=== PATIENT | male | born 1985 | race Caucasian/White ===

== ENCOUNTER 2017-10-13 11:51 | Emergency (ER) | payer OTHER ==
[2017-10-13] MEDS ORDERED: Sodium Chloride 0.9% 10 ML Syringe FLUSH PRN (11:59)
[2017-10-13] MEDS ORDERED: Diphtheria,Pertussis(Acell),Tetanus Vaccine 0.5 ML SDV IM ONE (12:00)
[2017-10-13] MEDS ORDERED: ceFAZolin 2 GM in Premix Bag 1 BAG IV ONE (12:00)
--- NOTE | 2017-10-13 12:50 | CT ---
CT cervical spine Technique: Multiple axial sections were obtained from above C1 inferiorly to the bottom of C7. Reconstructed sagittal and coronal images were reviewed. Findings: Fluid is seen within the inferior left mastoid sinus. Mild amount of fluid is seen within the right mastoid sinus. Skull base appears intact. Vertebral body heights and disc spaces are maintained. Vertebral bodies and posterior arches are intact with no fracture being seen. No bony central or bony neural foraminal stenosis is seen. No abnormal subluxation is seen. Impression: 1. Fluid within both mastoid sinuses. This most likely is incidental but please exclude any symptoms of mastoiditis. 2. Nothing acute is appreciated on CT study of the cervical spine. Diagnostic code #2
[2017-10-13] MEDS ORDERED: Lidocaine 1% 10 ML MDV INJECT ONE ×2 (12:52→13:21)
--- NOTE | 2017-10-13 12:52 | CT ---
Head CT Technique: Multiple axial sections through the brain were obtained. Intravenous contrast was not utilized. Comparison: No previous intracranial imaging. Findings: Ventricles along with basal cisterns and sulci over the convexities are within normal limits. No abnormal parenchymal densities are seen. No evidence of intracranial hemorrhage. No midline shift or mass effect is seen. Bone window settings were reviewed which shows fluid within the mastoid sinuses as noted on cervical spine CT. No acute calvarial abnormality is seen. Impression: 1. Fluid within the mastoid sinus is again noted. 2. Nothing acute is otherwise seen on noncontrast head CT exam. Diagnostic code #3
[2017-10-13] MEDS ORDERED: HYDROmorphone 0.5 MG/0.5 ML SYRINGE IVPUSH ONE (12:59)
--- NOTE | 2017-10-13 13:12 | CR ---
Right hand: Four views of the right hand were obtained. Comparison: No prior study. Comminuted fractures are identified on both sides of the MCP joint with involvement of the articular margins.. Displacement is seen of multiple fragments. This finding involves the fourth finger. Soft tissue swelling is seen. Other fingers appear unremarkable. Impression: 1. Displaced and comminuted fractures on both sides of the MCP joint. 2. Soft tissue swelling. Diagnostic code #3
[2017-10-13] MEDS ORDERED: Lidocaine 1% 10 ML MDV ONE (13:18)
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
== END 2017-10-13 14:20 ==
LOC: JD.ED 11:51
DX: S62.615B Displaced fracture of proximal phalanx of left ring finger, initial encounter for open fracture (principal); S62.335B Displaced fracture of neck of fourth metacarpal bone, left hand, initial encounter for open fracture; S09.90XA Unspecified injury of head, initial encounter; S61.412A Laceration without foreign body of left hand, initial encounter; T22.131A Burn of first degree of right upper arm, initial encounter; S01.81XA Laceration without foreign body of other part of head, initial encounter; Z88.2 Allergy status to sulfonamides; Z87.891 Personal history of nicotine dependence; X11.8XXA Contact with other hot tap-water, initial encounter
CPT/HCPCS: 12004; 12011; 29125; 36415; 70450; 72125; 73130; 80053; 80306; 85025; 90471; 90715; 96365; 96375; 99285; G0480; J0690; J1170; J7050; 99284-25